=== PATIENT | female | born 1980 | race Caucasian/White ===

== ENCOUNTER 2019-11-20 18:29 | Emergency (ER) | payer MEDICAID, SELFPAY ==
[2019-11-20] MEDS ORDERED: Fentanyl 100 MCG/2 ML VIAL ONE (18:52)
[2019-11-20 19:01] LABS: #Basophils 0.1 thou/uL (0.0-0.2); #Eosinphils 0.2 thou/uL (0.0-0.7); #Lymphocytes 1.7 thou/uL (1.20-3.40); #Monocytes 0.5 thou/uL (0.11-0.59); %Basophils 0.6 % (0.0-1.0); %Eosinophils 2.4 % (0.0-10.0); %Lymphocytes 18.1 % (21.0-51.0); %Monocytes 5.7 % (0.0-10.0); %Neutrophils 73.2 % (42.0-75.0); Hemoglobin 13.4 g/dL (12.0-16.0); Mean Corpuscular HGB CONC 30.6 g/dL (32.0-36.0); Mean Corpuscular Hemoglobin 28.5 pg (27.0-31.0); Mean Corpuscular Volume 93.1 fL (78.0-98.0); Mean Platelet Volume 8.3 fL (7.4-10.4); Platelet Count 221 thou/uL (130-400); White Blood Cell (WBC) Count 9.5 thou/uL (4.8-10.8)
[2019-11-20 19:18] LABS: ALT (SGPT) 16 U/L (8-55); AST (SGOT) 16 U/L (5-34); Albumin 4.3 g/dL (3.5-5.0); Alkaline Phosphatase 94 U/L (40-110); Anion Gap 15 mmol/L (10-20); BUN (Urea Nitrogen) 12 mg/dL (7.0-18.7); Bilirubin, Total 0.2 mg/dL (0.2-1.2); Calc. Creatinine Clearance 0 mL/min (70-130); Calcium 8.5 mg/dL (7.8-10.44); Carbon Dioxide 26 mmol/L (22-29); Chloride 105 mmol/L (98-107); Estimated GFR-MDRD 87; Globulin 2.5 g/dL (2.4-3.5); Glucose 95 mg/dL (70-105); Potassium 3.7 mmol/L (3.5-5.1); Protein, Total 6.8 g/dL (6.0-8.3); Sodium 142 mmol/L (136-145)
[2019-11-20] MEDS ORDERED: Clindamycin/D5W 600 mg/50 ml Premix Bag ONE (19:53)
[2019-11-20] MEDS ORDERED: Piperacillin/Tazobactam 4.5 GM VIAL ONE (20:22)
[2019-11-20] MEDS ORDERED: Sodium Chloride 0.9% 100 ML ONE (20:22)
[2019-11-20] MEDS ORDERED: Ketorolac Tromethamine 30 MG/ML VIAL ONE (20:40)
--- NOTE | 2019-11-20 20:49 | CT ---
CT OF THE INTERNAL AUDITORY CANALS WITH CONTRAST: 11/20/[address] of each IAC was performed using thin slice high resolution images. Fluid is seen in many of the left mastoid air cells consistent with acute mastoiditis. There is marke d thickening in the left external auditory canal. The tympanic membrane on the left is thicker than t he right. There is a small amount of thickening or fluid in the left middle ear, though it is largely well aerated. The mastoids, outer ear and middle ear were unremarkable in appearance on the right si de. Each internal auditory canal was normal in size. No enhancing lesions were seen associated with e ither canal. IMPRESSION: Acute left mastoiditis. Evidence of left external otitis and probably otitis media as well. Preliminary report discussed with Dr. Crain at 1945 on 11/20/19. POS: HOME
== END 2019-11-20 20:59 | disposition short-term general hospital (02) ==
LOC: BURERS 18:29
DX: H70.92 Unspecified mastoiditis, left ear (principal)
CPT/HCPCS: 70481; 80053; 85025; 86140; 96365; 96375; J1885; J2543; J3010; J3370; J3490

== ENCOUNTER 2020-09-14 20:31 | Emergency (ER) | payer SELFPAY ==
[2020-09-14] MEDS ORDERED: Lorazepam 2 MG/ML VIAL ONE (20:56)
[2020-09-14] MEDS ORDERED: diphenhydrAMINE 50 MG/ML VIAL ONE (20:56)
[2020-09-14 21:03] LABS: #Basophils 0.1 thou/uL (0.0-0.2); #Eosinphils 0.2 thou/uL (0.0-0.7); #Lymphocytes 1.5 thou/uL (1.20-3.40); #Monocytes 0.5 thou/uL (0.11-0.59); #Neutrophils 4.3 thou/uL (1.40-6.50); %Basophils 0.9 % (0.0-1.0); %Eosinophils 3.1 % (0.0-10.0); %Lymphocytes 22.4 % (21.0-51.0); %Monocytes 8.1 % (0.0-10.0); %Neutrophils 65.4 % (42.0-75.0); Hemoglobin 11.9 g/dL (12.0-16.0); Mean Corpuscular HGB CONC 32.5 g/dL (32.0-36.0); Mean Corpuscular Hemoglobin 27.7 pg (27.0-31.0); Mean Corpuscular Volume 85.1 fL (78.0-98.0); Mean Platelet Volume 9.3 fL (7.4-10.4); Platelet Count 278 thou/uL (130-400); RBC Distribution Width 13.3 % (11.5-14.5); Red Blood Cell (RBC) Count 4.32 mill/uL (4.20-5.40); White Blood Cell (WBC) Count 6.6 thou/uL (4.8-10.8)
[2020-09-14 21:06] LABS: BHCG - Serum Negative (NEGATIVE); Pregs Control Background? CLEAR/WHITE (CLR/WHITE); Pregs Control Bar Appear? YES (CONTROL BAR)
[2020-09-14 21:20] LABS: ALT (SGPT) 13 U/L (8-55); AST (SGOT) 15 U/L (5-34); Acetaminophen Less than 6.0 mcg/mL (10.0-30.0); Albumin 4.2 g/dL (3.5-5.0); Alcohol Less than 10 mg/dL (Less than 10); Alkaline Phosphatase 85 U/L (40-110); Anion Gap 15 mmol/L (10-20); BUN (Urea Nitrogen) 16 mg/dL (7.0-18.7); Bilirubin, Total Less than 0.2 mg/dL (0.2-1.2); CK (CPK) 179 U/L (29-168); Calc. Creatinine Clearance 0 mL/min (70-130); Calcium 8.9 mg/dL (7.8-10.44); Carbon Dioxide 25 mmol/L (22-29); Chloride 108 mmol/L (98-107); Globulin 2.4 g/dL (2.4-3.5); Glucose 94 mg/dL (70-105); Potassium 3.8 mmol/L (3.5-5.1); Protein, Total 6.6 g/dL (6.0-8.3); Salicylate Less than 8.0 mg/dL (15.0-30.0); Sodium 144 mmol/L (136-145)
[2020-09-14 21:33] LABS: Thyroid Stimulating Hormone 0.9117 uIU/mL (0.35-4.94)
[2020-09-14] MEDS ORDERED: Ketorolac Tromethamine 30 MG/ML VIAL ONE ×2 (22:03→23:12)
[2020-09-14 22:46] LABS: Bilirubin Negative (Negative); Blood, Urine Negative (Negative); Clarity Clear (Clear); Glucose, Urine (Dipstick) Negative (Negative); Ketone, Urine Negative (Negative); Leukocyte Trace (Negative); Nitrite Negative (Negative); Protein, Urine (Dipstick) Negative (Neg-Trace); Urobilinogen 0.2 mg/dL (Less than 2); pH, Urine 6.5 (5.0-9.0)
[2020-09-14 22:49] LABS: Specific Gravity, Urine 1.022 (1.002-1.036)
[2020-09-14] MEDS ORDERED: Acetaminophen 500 MG TAB ONE (22:49)
[2020-09-14 22:52] LABS: RBC/HPF 0-3 HPF (0-3); Squamous Epithelial 0-3 HPF (0-3)
[2020-09-14 22:55] LABS: Bacteria/HPF Rare-Few HPF (None Seen)
[2020-09-14 22:59] LABS: Amphetamine Not Detected (NotDetected); Barbiturates Screen Not Detected (NotDetected); Benzodiazepine Screen Not Detected (NotDetected); Cocaine Metabolite Screen Not Detected (NotDetected); Methadone Not Detected (NotDetected); Methamphetamine Detected (NotDetected); Opiate Screen Not Detected (NotDetected); Oxycodone Screen Not Detected (NotDetected); Phencyclidine (PCP) Not Detected (NotDetected); THC/Cannabinoid Screen Not Detected (NotDetected); Tricyclic Screen Detected (NotDetected)
[2020-09-14 23:00] LABS: Medtox Control Line Valid? VALID (VALID)
== END 2020-09-15 00:15 | disposition home or self-care (01) ==
LOC: BURERS 20:31
DX: S00.412A Abrasion of left ear, initial encounter (principal); B35.4 Tinea corporis; L25.9 Unspecified contact dermatitis, unspecified cause; W57.XXXA Bitten or stung by nonvenomous insect and other nonvenomous arthropods, initial encounter
CPT/HCPCS: 80053; 80306; 80307; 81003; 81015; 82550; 84443; 84703; 85025; 96374; 96375; 96376; J1200; J1885; J2060